=== PATIENT | male | born 1975 | race Caucasian/White ===

== ENCOUNTER 2018-04-28 20:11 | Emergency (ER) | payer MEDICAID, OTHER ==
[2018-04-28 20:20] VITALS: BP 132/78; PULSE 79; RESP 18; TEMP 97.9; O2SAT 100
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
== END 2018-04-28 22:40 | disposition home or self-care (01) ==
LOC: H.ER 20:11
DX: S06.0X9A Concussion with loss of consciousness of unspecified duration, initial encounter (principal); V43.52XA Car driver injured in collision with other type car in traffic accident, initial encounter
CPT/HCPCS: 70450; 72125; 96372; 99284; J1885